=== PATIENT | female | born 1985 ===

== ENCOUNTER 2021-09-01 07:59 | Emergency (ER) | payer MEDICAID ==
[2021-09-01 08:11] VITALS: BP 134/81
[2021-09-01] MEDS ORDERED: ASPIRIN 325 MG TAB PO ONE (08:11)
--- NOTE | 2021-09-02 13:42 | Electrocardiograph Report ---
[facility] Test Date: 2021-09-01 Test Time: 08:13:21 Pat Name: ANABELLE KELLEY Department: Room: Gender: F [employer] Apprentice: RONNIE : 1985 Requested By: ED DOC Order Number: [id number] Reading MD: Darinel Matthews Measurements Intervals [place] Rate: 63 P: -26 NM: 148 QRS: 71 QRSD: 85 T: 65 QT: 470 QTc: 484 Interpretive Statements Sinus rhythm Consider left ventricular hypertrophy No previous ECG available for comparison Electronically Signed On 09-02-2021 13:42:48 EDT by Darinel Matthews
== END 2021-09-01 10:42 | disposition left against medical advice (07) ==
LOC: ED 07:59
DX: R07.89 Other chest pain (principal); Z53.21 Procedure and treatment not carried out due to patient leaving prior to being seen by health care provider
CPT/HCPCS: 93005